=== PATIENT | female | born 1995 | race Caucasian/White ===

== ENCOUNTER 2020-02-18 16:44 | Emergency (ER) | payer OTHER ==
[~2020-02-18] VITALS: Ht 157.5 cm; Wt 61.2 kg
[2020-02-18] MEDS ORDERED: PROTONIX40 M2 PO (16:51)
[2020-02-18 17:26] LABS: ABSOLUTE NEUTROPHILS 5.3 thou/uL (1.4-8.2); BASOPHILS 0.4 % (0.0-2.0); EOSINOPHILS 2.1 % (0.0-3.0); HEMATOCRIT 42.1 % (37.0-47.0); HEMOGLOBIN 14.6 gm/dL (12.0-15.0); LYMPHOCYTES 47.5 % (24.0-44.0); MCH 31.2 pg (26.0-34.0); MCHC 34.6 g/dL (28.0-37.0); MCV 90.1 fL (80.0-100.0); MONOCYTES 4.6 % (1.0-8.0); PLATELET COUNT 353 thou/uL (150-400); POLYS 45.4 % (36.0-66.0); RBC 4.68 mil/uL (4.20-5.00); RDW 12.9 % (10.5-14.5); WBC 11.6 thou/uL (4.0-11.0)
[2020-02-18 17:37] LABS: CALCIUM 8.5 mg/dL (8.5-10.1); CREATININE 1.1 mg/dL (0.6-1.0); POTASSIUM 3.4 mmol/L (3.5-5.1)
[2020-02-18 17:44] LABS: ALBUMIN 3.6 g/dL (3.4-5.0); TOTAL BILIRUBIN 0.5 mg/dL (0.2-1.0)
[2020-02-18] MEDS ORDERED: PREDNISONE 20 M20 MG PO (19:19)
[2020-02-18 19:22] VITALS: BP 123/87
--- NOTE | 2020-02-19 08:11 | EKG ---
[facility] [address] ELECTROCARDIOGRAM REPORT Name: DONOVAN MOLINA Room #: DEP [facility].#: [id number] Admission: 02/18/20 Attend Phys: Discharge: 02/18/20 Date of : [birth year] Report #: [id number] THIS REPORT FOR: cc: Chloe Mendez MD, M. Kathryn MD Couchonnal, Luis F. MD ~ THIS REPORT FOR: //name// [facility] ED Test Date: 2020-02-18 Test Time: 17:40:14 Pat Name: DONOVAN MOLINA Department: Room: Gender: F [employer]: an : 1995 Requested By: Orion Guzmán Order Number: [id number] MD: Celso Fung Measurements Intervals Farley Rate: 86 P: 44 MA: 108 QRS: 30 QRSD: 93 T: 5 QT: 355 QTc: 425 Interpretive Statements Sinus rhythm Short MA interval RSR' in V1 or V2, right VCD or RVH Borderline T abnormalities, diffuse leads No previous ECG available for comparison Electronically Signed On 02-19-2020 8:11:23 CDT by Celso Fung [email or web address] <ELECTRONICALLY SIGNED> By: Celso Fung MD 02/19/20 0811 174 174 Celso Fung MD /EPI
== END 2020-02-18 19:28 | disposition home or self-care (01) ==
LOC: ER 16:44
PROVIDERS: Physician Assistant
DX: T78.40XA Allergy, unspecified, initial encounter (principal); Z79.899 Other long term (current) drug therapy; Z88.8 Allergy status to other drugs, medicaments and biological substances; Y92.89 Other specified places as the place of occurrence of the external cause